=== PATIENT | male | born 1985 | race Caucasian/White ===

== ENCOUNTER 2020-07-29 09:25 | Emergency (ER) | payer OTHER, SELFPAY ==
[2020-07-29 09:50] VITALS: BP 154/109; PULSE 112; RESP 18; TEMP 37; O2SAT 98
--- NOTE | 2020-07-29 10:20 | ED.GENADULT ---
HPI - General Adult General Chief complaint: Unspecified Stated complaint: SOB Source: patient Mode of arrival: ambulatory Limitations: no limitations History of Present Illness HPI narrative: Patient is a 35-year-old male who presents complaining of fatigue, headache, mild shortness of breath and intermittent cough. Patient reports testing positive for Covid 13 days ago. Patient continues to have residual effects. Patient is scheduled to go back to work tomorrow but continues to feel poorly. MD complaint: Fatigue, headache, mild shortness of breath, intermittent cough Related Data Home Medications Medication Instructions Recorded Confirmed No Home Medications 07/29/20 07/29/20 Allergies Allergy/AdvReac Type Severity Reaction Status Date / Time No Known Allergies Allergy Verified 07/29/20 10:01 Review of Systems Review of Systems: Narrative: CONSTITUTIONAL: Denies fever, chills, or sweats. EYES: Denies visual changes, redness, or discharge. ENT: Denies rhinorrhea, congestion, sore throat, or otalgia. CARDIOVASCULAR: Denies chest pain, palpitations, or edema. RESPIRATORY: Reports intermittent cough and mild dyspnea. GASTROINTESTINAL: Denies abdominal pain, nausea, vomiting, or diarrhea. GENITOURINARY: Denies dysuria or hematuria. SKIN: Denies rash or itching. MUSCULOSKELETAL: Denies back pain, joint pain, or myalgia. NEUROLOGIC: Denies headache, numbness, dizziness, or weakness. PSYCHIATRIC: Denies anxiety or depression. [facility] Past Medical History Medical History COVID-19 Surgical History Surgical History Previous back surgery Social History Social History (Updated 07/29/20 @ 10:26 by LISSETH Dutton) Smoking status: Former smoker Smoking end date: 09/23/18 Alcohol intake: current Alcohol use details: occasional Substance use: never Living arrangements: with family Occupation/Education: occupation Gender identity (if verbalized by the patient): Male Exam Narrative: Exam Narrative: GENERAL: Well-appearing, well-nourished, and in no acute distress. HEAD: Normocephalic, atraumatic. EYES: EOMI. No redness or drainage. Conjunctiva are normal. ENT: Mucous membranes pink and moist. CHEST: No respiratory distress. Clear to auscultation. HEART: Regular rate and rhythm. GI: Soft, nontender without rebound, or guarding. No distention. Bowel sounds normal in all quadrants. MUSCULOSKELETAL: No bony tenderness. EXTREMITIES: Normal range of motion. No edema. SKIN: Warm, dry, no rash. NEURO: No focal deficits. Alert and oriented x3. Gait steady. PSYCH: Normal affect. No signs of depression or anxiety. Course Vital Signs Vital signs: Vital Signs Temperature 37.0 C 07/29/20 09:50 Pulse Rate 112 H 07/29/20 09:50 Respiratory Rate 18 07/29/20 09:50 Blood Pressure 154/109 H 07/29/20 09:50 Pulse Oximetry 98 07/29/20 09:50 Temperature 37.0 C 07/29/20 09:50 Pulse Rate 112 H 07/29/20 09:50 Respiratory Rate 18 07/29/20 09:50 Blood Pressure 154/109 H 07/29/20 09:50 Pulse Oximetry 98 07/29/20 09:50 Medical Decision Making MDM Narrative Medical decision making narrative: Patient more than likely continues to be Covid positive. Patient sent for Covid testing. Patient aware of the need to continue quarantine until further notified. Patient encouraged to hydrate, Tylenol or ibuprofen for body aches. Patient is stable for discharge home with outpatient follow-up. Differential Diagnosis Differential Diagnosis: Covid, URI, Vital Signs Vital Signs: Vital Signs Temperature 37.0 C 07/29/20 09:50 Pulse Rate 112 H 07/29/20 09:50 Respiratory Rate 18 07/29/20 09:50 Blood Pressure 154/109 H 07/29/20 09:50 Pulse Oximetry 98 07/29/20 09:50 Temperature 37.0 C 07/29/20 09:50 Pulse Rate 112 H 07/29/20 09:50 Respiratory Ra
== END 2020-07-29 10:33 | disposition home or self-care (01) ==
PROVIDERS: Emergency Provider Nurse Practitioner
DX: U07.1 COVID-19 (principal); Z87.891 Personal history of nicotine dependence
CPT/HCPCS: 99211; G0463